=== PATIENT | female | born 1955 | race African-American/Black ===

== ENCOUNTER 2022-09-18 11:53 | Emergency (ER) | payer OTHER ==
[2022-09-18 13:12] LABS: URINE BILIRUBIN - DIPSTICK NEGATIVE (NEGATIVE); URINE BLOOD DIPSTICK SMALL (NEGATIVE); URINE COLOR YELLOW; URINE GLUCOSE - DIPSTICK NEGATIVE (NEGATIVE); URINE KETONE NEGATIVE (NEGATIVE); URINE LEUK ESTERASE NEGATIVE (NEGATIVE); URINE PH 5.5 (4.5-8.0); URINE PROTEIN - DIPSTICK NEGATIVE (NEG-TRACE); URINE SPECIFIC GRAVITY 1.025; URINE UROBILINOGEN - DIPSTICK 0.2 E.U./dL (0.2)
[2022-09-18 13:15] LABS: URINE NITRITE - DIPSTICK NEGATIVE (Negative)
[2022-09-18 13:21] LABS: URINE SQUAMOUS EPITHELIAL CELL FEW EPI/hpf (0-FEW); URINE WBC 0-2 WBC/hpf (0-5)
[2022-09-18 14:05] VITALS: BP 145/94
== END 2022-09-18 14:12 | disposition home or self-care (01) | DRG 125 ==
LOC: ED 11:53
PROVIDERS: Nurse Practitioner
DX: H53.8 Other visual disturbances (principal); H57.11 Ocular pain, right eye; R20.8 Other disturbances of skin sensation; N95.2 Postmenopausal atrophic vaginitis